=== PATIENT | female | born 1965 | race African-American/Black ===

== ENCOUNTER 2016-09-20 03:39 | Observation (INO) | payer BC ==
--- NOTE | ~2016-09-20 | DS ---
Discharge Summary [facility] [address] [place]. [address] NAME: ZAKI BROWN : 63 STATUS : DIS Maddison PAT#: [id number] AGE: 51 ADM/REG DATE : 09/20/16 MR#: [id number] REPORT SERV DATE: 09/22/16 DICTATED BY: JR. MICHEL WILLIAM JOHN DATE: 09/21/16 REPORT STATUS : Draft TRANSCRIBED BY: ONESIMO DATE: 09/21/16 ADMISSION DATE: 09/20/2016 DISCHARGE DATE: 09/21/2016 DISCHARGE DIAGNOSIS: Include: 1. Reactive airway disease exacerbation. 2. History of pulmonary embolism. 3. Epigastric pain. OPERATIONS/PROCEDURES AND TREATMENTS: Include: 1. Chest x-ray done 09/20/2016, which showed no acute cardiopulmonary abnormality. 2. CT angiogram of the chest done 09/20/2016 showed no CTA evidence of embolism. No active pulmonary disease. DISCHARGE MEDICATIONS: Include: 1. Coumadin 5 mg orally daily. 2. Prednisone 40 mg orally daily for three days, then 20 for three days, 10 for three days. 3. Albuterol 0.083% nebulized q.4 hours. 4. Albuterol metered-dose inhaler two puffs q.6 hours as needed. 5. Excedrin Extra Strength as needed for headaches. HOSPITAL COURSE: The patient is a 51-year-old female, presented to emergency room with complaint of shortness of breath. She has a history of reactive airway disease, which she believes is asthma with an onset approximately five years ago. She does not have a smoking history. The patient awakened on the morning of presentation with pleuritic chest pain and shortness of breath with extensive wheezing. She also developed cough and had posttussive emesis x2 and therefore came to the emergency room. On initial exam, temperature was 98, blood pressure 138/82, heart rate 91, respiratory rate 16, saturation 97% on 1.5 L oxygen by nasal cannula. She had coarse bilateral pain and wheezes with good air entry on lung exam. Otherwise, exam was normal. Laboratory was insignificant. Arterial blood gas showed a pH of 7.37, PCO2 of 37, and PO2 of 75 on a non- rebreather mask. Chest x-ray showed no infiltrate. CT angiogram showed no evidence of pulmonary embolism and no infiltrate. EKG was without acute ST or T wave changes. The patient was admitted to the Clinical Decision Unit. She had been given IV steroids and nebulizer in the emergency room. When she got to the floor, she was converted to prednisone 40 mg daily with albuterol nebulizer every four hours with good result. The patient was weaned to room air, had no conversational dyspnea or respiratory distress at all and was able to ambulate without difficultly. She will be discharged home on a prednisone taper with scheduled nebulizers with albuterol every four hours and follow up with her primary care provider, Dr. Brianna Mayen. Regarding her history of pulmonary embolism, her INR was checked. It was 1.1. She presumably has not been taking her Coumadin. We went ahead and restarted that. The patient will follow up with Dr. Mayen for an INR check. Discharge Summary [address] [address] NAME: ZAKI BROWN : 63 STATUS : DIS Maddison PAT#: [id number] AGE: 51 ADM/REG DATE : 09/20/16 MR#: [id number] REPORT SERV DATE: 09/22/16 DICTATED BY: JR. MICHEL WILLIAM JOHN DATE: 09/21/16 REPORT STATUS : Draft TRANSCRIBED BY: ONESIMO DATE: 09/21/16 Regarding epigastric pain on the day of discharge, the patient said she had gas pain. We will give her dose of Gas-X prior to discharge. DISCHARGE DIET: Regular. ACTIVITY: As tolerated. For discharge exam and laboratory, please see daily progress note. WJF/ONESIMO Carlito Michel Jr, MD / [id number] CC: Carlito Michel Jr, MD Sonya Johnson, M.D.
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
[2016-09-20 03:30] LABS: BE (BASE EXCESS) -3.7 MEQ/L (0 +/- 2.5); CARBOXYHEMOGLOBIN 1.3 % (0-3); DEVICE NRB; INSTRUMENT SERIAL # 8087; METHEMOGLOBIN 0.2 % (0-3); O2 CONTENT 16.9 VOL% (18-24); PCO2 (CO2 TENSION) 37 MMHG (35-45); PO2 (O2 TENSION) 75 MMHG (79-93); SAMPLE Arterial; pH 7.37 (7.37-7.43)
[2016-09-20 03:31] LABS: BASOPHILS 0.2 %; BASOPHILS ABSOLUTE 0.01 10/3/uL (0.0-0.16); EOSINOPHILS 4.1 %; EOSINOPHILS ABSOLUTE 0.18 10/3/uL (0.0-0.53); HEMATOCRIT 38.4 % (36.0-48.0); LYMPHOCYTES ABSOLUTE 2.29 10/3/uL (0.67-4.30); MEAN CORPUS HGB CONC 33.9 g/dL (32.0-36.0); MEAN PLATELET VOLUME 9.1 fL (9.2-13.0); MONOCYTES ABSOLUTE 0.22 10/3/uL (0.21-1.20); NEUTROPHILS 38.7 %; PLATELET COUNT 298 10/3/uL (150-400); RBC DISTRIBUTION WIDTH 14.2 % (12.0-16.0); WHITE BLOOD CELLS 4.4 10/3/uL (4.5-10.5)
[2016-09-20 03:32] LABS: MEAN CORPUSCULAR VOLUME 91.4 fL (80-100)
[2016-09-20 03:33] LABS: ER CBC TAT 0 Hrs 05 MinsNP; MANUAL DIFF NO %
[2016-09-20 03:38] LABS: PROTIME (NOT ORD) 13.3 SEC (12.0-14.5)
[~2016-09-20 03:39] MED LIST: FERROUS SULF325 M1 PO; PCET PO; PROAIR HFA INH; PROTONIX PO; PROVENTSOL INH; PROVERA10 MG PO; XARELTO20 MG PO
[2016-09-20 03:49] LABS: BUN (BLOOD UREA NITROGEN) 15 MG/DL (6-23); CALCIUM, SERUM 9.2 MG/DL (8.5-10.4); CHEST PAIN PROFILE TAT 0 Hrs 23 Mins; CHLORIDE, SERUM 109 MMOL/L (96-112); CO2 (CARBON DIOXIDE) 29 MMOL/L (24-34); GFR AFRICAN AMERICAN 98 ML/MIN (>=60); GFR NON AFRICAN AMERICAN 85 ML/MIN (>=60); POTASSIUM, SERUM 3.5 MMOL/L (3.5-5.3); SODIUM, SERUM 143 MMOL/L (135-148); TROPONIN I <0.02 NG/ML (<0.05)
[2016-09-20 03:50] LABS: GLUCOSE, SERUM 125 MG/DL (60-99)
[2016-09-20] MEDS ORDERED: C5 PO (07:48)
[2016-09-20] MEDS ORDERED: PROAIR HFA INH (07:49)
[2016-09-20] MEDS ORDERED: ALBUTEROL0.083 % INH (07:49)
[2016-09-20] MEDS ORDERED: EXCEDRIN EXTRA1 EACH PO (07:51)
[2016-09-20 12:25] LABS: INTERNATIONAL NORMAL RATI 1.1 UNITS (-); PROTIME (NOT ORD) 13.9 SEC (12.0-14.5)
[2016-09-21 05:16] LABS: INTERNATIONAL NORMAL RATI 1.1 UNITS (-); PROTIME (NOT ORD) 14.3 SEC (12.0-14.5)
[2016-09-21] MEDS ORDERED: STERAPDS12 (10:09)
[2017-01-13] MEDS ORDERED: ALBUTEROL0.083 % INH (04:13)
[2017-01-13] MEDS ORDERED: PROVHFA INH (04:13)
[2017-01-13] MEDS ORDERED: C5 PO (04:14)
[2017-01-15] MEDS ORDERED: ASAB PO (18:18)
[2017-01-15] MEDS ORDERED: SYMBICORT 80/4.1 INH INH (18:20)
[2017-01-15] MEDS ORDERED: P20 PO (18:20)
== END 2016-09-21 12:11 | disposition home or self-care (01) ==
LOC: ER 03:39 → CDU1 07:40
PROVIDERS: Internal Medicine; Specialist
DX: J45.901 Unspecified asthma with (acute) exacerbation (principal); K21.9 Gastro-esophageal reflux disease without esophagitis; R10.13 Epigastric pain; Z86.711 Personal history of pulmonary embolism; Z90.49 Acquired absence of other specified parts of digestive tract; Z79.01 Long term (current) use of anticoagulants
CPT/HCPCS: 36600; 71010; 71275; 80048; 82805; 83735; 83880; 84484; 85025; 85610; 85730; 93005; 94640; 96374; 96375; 99291; A9270-GY; G0378; J2920; Q9967